=== PATIENT | male | born 1985 ===

== ENCOUNTER → 2017-10-18 | Outpatient (CLI) | payer BC | LOC: MHCPAIN 12:46 | DX: G89.29 Other chronic pain (principal); M47.812 Spondylosis without myelopathy or radiculopathy, cervical region; R51 Headache | CPT/HCPCS: G0463 ==

== ENCOUNTER 2018-05-02 21:30 | Emergency (ER) | payer BC ==
[~2018-05-02] VITALS: Ht 177.8 cm; Wt 90.9 kg
[2018-05-02 21:35] VITALS: BP 142/91; TEMP 98.3
[2018-05-02] MEDS ORDERED: EFFEXOR XR37.5 MG/CA PO (21:38)
[2018-05-02] MEDS ORDERED: NAMENDA 10MG TA10 MG PO (21:39)
[2018-05-02] MEDS ORDERED: INDERAL LA 60MG60 MG PO (21:39)
[2018-05-02] MEDS ORDERED: NAPROSYN500 MG PO (21:40)
[2018-05-02] MEDS ORDERED: MASON NATURAL2000 IU (21:40)
[2018-05-02] MEDS ORDERED: VITAMIN B COMPL1 SGL PO (21:40)
[2018-05-02] MEDS ORDERED: CLARITIN 1010 MG/TAB PO (21:41)
[2018-05-02 22:07] VITALS: PULSE 75
== END 2018-05-02 22:07 | disposition home or self-care (01) ==
LOC: COL.ER 21:30
DX: S09.90XA Unspecified injury of head, initial encounter (principal); S00.83XA Contusion of other part of head, initial encounter; G43.909 Migraine, unspecified, not intractable, without status migrainosus; W21.07XA Struck by softball, initial encounter; Y92.39 Other specified sports and athletic area as the place of occurrence of the external cause; Y93.64 Activity, baseball